=== PATIENT | male | born 1950 | race Caucasian/White ===

== ENCOUNTER 2017-04-23 11:37 | Emergency (ER) | payer BC, MEDICAID, MEDICARE ==
[2017-04-23] MEDS ORDERED: Albuterol/Ipratropium 3.0-0.5 MG/3 ML Neb Soln NEB ONE (12:14)
--- NOTE | 2017-04-23 12:15 | EDM.PDOC ---
ED HPI GENERAL MEDICAL PROBLEM - General Chief Complaint: Respiratory Problem Stated Complaint: COUGH Time Seen by Provider: 04/23/17 11:50 Source of Information: Reports: Patient, Old Records, RN History Limitations: Reports: No Limitations - History of Present Illness INITIAL COMMENTS - FREE TEXT/NARRATIVE: 66 yo male with a productive cough and SOB. No fever. Has emphysema and an albuterol MDI. Used to be on Brio but this was stopped. Is still smoking. of lung CA. Gets partial relief with his albuterol. Onset: Gradual Onset Date: 04/20/17 Duration: Day(s):, Getting Worse Location: Reports: Chest Quality: Reports: Other (no pain) Severity: Moderate Improves with: Reports: Medication Worsens with: Reports: Movement (exertion) Context: Reports: Other (chronic smoker/emphysema) Associated Symptoms: Reports: Cough, Shortness of Breath. Denies: Fever/Chills Treatments [employer]: Reports: Other (see below) (Albuterol) - Related Data Allergies Allergy/AdvReac Type Severity Reaction Status Date / Time No Known Allergies Allergy Verified 04/23/17 12:03 Home Meds: Home Meds Albuterol [Ventolin HFA] 2 puff INH Q4HR PRN 01/01/13 [History] Lisinopril [Lisinopril] 1 tab PO DAILY 01/01/13 [History] Multivitamin [Multi-Vitamin Daily] 1 each PO DAILY 01/01/13 [History] Saw [place] Fruit [Saw [place]] 450 mg PO DAILY 01/01/13 [History] Social & Family History - Tobacco Use Smoking Status *Q: Current Every Day Smoker Years of Tobacco use: 50 Packs/Tins Daily: 1 ED ROS GENERAL - Review of Systems Review Of Systems: See Below Constitutional: Reports: Malaise. Denies: Fever HEENT: Reports: Rhinitis Respiratory: Reports: Shortness of Breath, Cough, Sputum (yellow) Cardiovascular: Reports: No Symptoms GI/Abdominal: Reports: No Symptoms : Reports: No Symptoms Musculoskeletal: Reports: No Symptoms Skin: Reports: No Symptoms Neurological: Reports: No Symptoms ED EXAM, GENERAL - Physical Exam Exam: See Below Exam Limited By: No Limitations General Appearance: Alert, WD/WN, No Apparent Distress, Other (appears older than his stated age) Eye Exam: Bilateral Eye: Normal Inspection Ears: Normal External Exam, Normal Canal, Hearing Grossly Normal, Normal TMs Ear Exam: Bilateral Ear: Auricle Normal, Canal Normal, TM normal Nose: Normal Inspection, Normal Mucosa, No Blood Throat/Mouth: Normal Inspection, Normal Lips, Normal Oropharynx, Normal Voice, No Airway Compromise Head: Atraumatic, Normocephalic Neck: Normal Inspection Respiratory/Chest: No Respiratory Distress, Lungs Clear, Decreased Breath Sounds (bilaterally). No: Normal Breath Sounds, No Accessory Muscle Use, Chest Non-Tender Cardiovascular: Regular Rate, Rhythm, No Edema Extremities: Normal Inspection, Non-Tender, No Pedal Edema Neurological: Alert, Oriented, CN II-XII Intact, Normal Cognition, No Motor/ Sensory Deficits Psychiatric: Normal Affect, Normal Mood Skin Exam: Warm, Dry, Intact, Normal Color, No Rash Course - Vital Signs Text/Narrative:: Feels better after neb, breath sounds still decreased bilat. Last Recorded V/S: Last Vital Signs Temp 37.7 C 04/23/17 12:09 Pulse 89 04/23/17 12:09 Resp 18 04/23/17 12:09 BP 142/87 H 04/23/17 12:09 Pulse Ox 91 L 04/23/17 12:09 - Orders/Labs/Meds Orders: Active Orders 24 hr Category Date Time Status RT Aerosol Therapy [RC] ASDIRECTED Care 04/23/17 12:14 Active Chest 2V [CR] Stat Exams 04/23/17 12:14 Taken Meds: Medications Discontinued Medications Generic Name Dose Route Start Last Admin Trade Name Freq PRN Reason Stop Dose Admin Albuterol/Ipratropium 3 ml 04/23/17 12:14 04/23/17 12:19 Duoneb 3.0-0.5 Mg/3 Ml NEB 04/23/17 12:15 3 ml ONETIME ONE Administration - Radiology Interpretation Free Text/Narrative:: CXR-hyperinflation only Departure - Departure Time of Disposition: 13:00 Disposition: Home, Self-Care 01 Condition: Fair Clinical Impression: Bronchitis, Tobacco abuse disorder Emphysema lung Qualifiers: Emphysema type: unspecified Qualified Code(s): J43.9 - Emphysema, unspecified Clinical Impression: (Ruled Out): Emphysema with chronic bronchitis - Discharge Information Referrals: Phil Klein MD [Primary Care Provider] - Forms: ED Department Discharge - My Orders Last 24 Hours: My Active Orders 04/23/17 12:14 RT Aerosol Therapy [RC] ASDIRECTED Chest 2V [CR] Stat - Assessment/Plan Last 24 Hours: My Active Orders 04/23/17 12:14 RT Aerosol Therapy [RC] ASDIRECTED Chest 2V [CR] Stat
--- NOTE | 2017-04-24 09:47 | CR ---
Chest 2V HISTORY: Cough, shortness of breath. COMPARISON: 03/29/2007 FINDINGS: Hyperinflation. Cardiac size and pulmonary vessels normal. There are no infiltrates or effu sions. No pneumothorax. The osseous structures appear normal. IMPRESSION: No acute pulmonary disease.
== END 2017-04-23 13:57 | disposition home or self-care (01) ==
LOC: JP.ED 11:37
DX: J40 Bronchitis, not specified as acute or chronic (principal); J43.9 Emphysema, unspecified; F17.210 Nicotine dependence, cigarettes, uncomplicated; Z79.899 Other long term (current) drug therapy
CPT/HCPCS: 71046; 94640; 99284; J7620

== ENCOUNTER 2017-12-25 15:23 | Emergency (ER) | payer MEDICARE ==
[2017-12-25] MEDS ORDERED: Bacitracin Oint 1 GM U/D Packet TOP ONE (16:04)
--- NOTE | 2017-12-25 16:14 | EDM.PDOC ---
ED HPI GENERAL MEDICAL PROBLEM - General Chief Complaint: Laceration Stated Complaint: CUT THUMB Time Seen by Provider: 12/25/17 16:00 Source of Information: Reports: Patient History Limitations: Reports: No Limitations - History of Present Illness INITIAL COMMENTS - FREE TEXT/NARRATIVE: 67-year-old male accidentally caught his left thumb on a table saw blade. No other injury. Tetanus is current Onset: Sudden Duration: Hour(s): (Within the last hour) Left Hand Pain Score (Numeric/FACES): 4 - Related Data Allergies Allergy/AdvReac Type Severity Reaction Status Date / Time No Known Allergies Allergy Verified 04/23/17 12:03 Home Meds: Home Meds Albuterol [Ventolin HFA] 2 puff INH Q4HR PRN 01/01/13 [History] Lisinopril 1 tab PO DAILY 01/01/13 [History] Multivitamin [Multi-Vitamin Daily] 1 each PO DAILY 01/01/13 [History] Saw [place] Fruit [Saw [place]] 450 mg PO DAILY 01/01/13 [History] Azithromycin [IJD: Azithromycin] 250 mg PO DAILY #6 tab 04/23/17 [Rx] predniSONE [Prednisone] 10 mg PO TID #14 tablet 04/23/17 [Rx] ED ROS GENERAL - Review of Systems Review Of Systems: See Below Constitutional: Denies: Fever, Chills Respiratory: Denies: Shortness of Breath GI/Abdominal: Denies: Nausea, Vomiting Psychiatric: Reports: No Symptoms ED EXAM, SKIN/RASH Exam: See Below Exam Limited By: No Limitations General Appearance: Alert, No Apparent Distress Respiratory/Chest: No Respiratory Distress Extremities: Other (Exam is otherwise limited to the left hand. The patient has a 3 x 2 cm area of laceration and avulsion of the pulp of the thumb on the left side. There is no bone exposure or involvement of the nailbed on the opposite side of the thumb. There is however a significant amount of soft tissue missing. ) Course - Vital Signs Last Recorded V/S: Last Vital Signs Temp 98.2 F 12/25/17 16:11 Pulse 93 12/25/17 16:11 Resp 16 12/25/17 16:11 BP 131/74 12/25/17 16:11 Pulse Ox 90 L 12/25/17 16:11 - Orders/Labs/Meds Meds: Medications Discontinued Medications Generic Name Dose Route Start Last Admin Trade Name Andrzej PRN Reason Stop Dose Admin Bacitracin 1 dose 12/25/17 16:04 12/25/17 16:30 Bacitracin Oint 1 Gm TOP 12/25/17 16:05 1 dose ONETIME ONE Administration - Re-Assessments/Exams Free Text/Narrative Re-Assessment/Exam: 12/25/17 16:13 The wound was washed with saline, bacitracin applied, nonstick dressing and a tube gauze. He'll be discharged with cephalexin 500 mg 3 times a day, given 10 Vicodin for extra pain control and recheck with Dr. Cho tomorrow morning at the clinic. Departure - Departure Time of Disposition: 16:50 Disposition: Home, Self-Care 01 Condition: Good Clinical Impression: Laceration of thumb Qualifiers: Encounter type: initial encounter Damage to nail status: without damage Foreign body presence: without foreign body Laterality: left Qualified Code(s): S61.012A - Laceration without foreign body of left thumb without damage to nail , initial encounter - Discharge Information Instructions: Laceration Care, Adult Referrals: Phil Klein MD [Primary Care Provider] - Forms: ED Department Discharge Care Plan Goals: Keep wound covered, take antibiotic and pain medications as prescribed. Recheck tomorrow with Dr. Cho at the clinic after 9 AM.
== END 2017-12-25 16:45 | disposition home or self-care (01) ==
LOC: JP.ED 15:23
DX: S61.012A Laceration without foreign body of left thumb without damage to nail, initial encounter (principal); W23.1XXA Caught, crushed, jammed, or pinched between stationary objects, initial encounter; Z79.899 Other long term (current) drug therapy
CPT/HCPCS: 99283

== ENCOUNTER 2019-04-20 21:01 | Inpatient (IN) | payer MEDICARE ==
--- NOTE | 2019-04-20 22:15 | EDM.PDOC ---
ED HPI GENERAL MEDICAL PROBLEM - General Chief Complaint: General Stated Complaint: NAUSEA,FEVER/CHILLS Time Seen by Provider: 04/20/19 21:38 Source of Information: Reports: Patient, Family, RN Notes Reviewed History Limitations: Reports: No Limitations - History of Present Illness INITIAL COMMENTS - FREE TEXT/NARRATIVE: 68-year-old gentleman presents emergency department a complaint of fever, he has a known history of COPD as well as leukemia currently undergoing chemotherapy treatment. He states his fever at home was up to 102 he feels weak however by the time he arrives to the emergency department he does feel better. States he has some shortness of breath beyond baseline but no cough no chest pain no nausea or vomiting denies pain Pain Score (Numeric/FACES): 0 - Related Data Allergies Allergy/AdvReac Type Severity Reaction Status Date / Time No Known Allergies Allergy Verified 04/20/19 21:38 Home Meds: Home Meds Albuterol [Ventolin HFA] 2 puff INH Q4HR PRN 01/01/13 [History] Lisinopril 20 mg PO DAILY 01/01/13 [History] Multivitamin [Multi-Vitamin Daily] 1 each PO DAILY 01/01/13 [History] Acyclovir 200 mg PO DAILY 04/20/19 [History] Escitalopram Oxalate 5 mg PO DAILY 04/20/19 [History] Fluticasone/Vilanterol [Breo Ellipta 100-25 MCG Inhalation Kit] 1 inh INH DAILY 04/20/19 [History] Metoclopramide HCl 5 mg PO ASDIRECTED PRN 04/20/19 [History] Prochlorperazine [Compazine] 10 mg PO ASDIRECTED PRN 04/20/19 [History] Sulfamethoxazole/Trimethoprim [Sulfamethoxazole-Tmp Ss Tablet] 1 each PO ASDIRECTED 04/20/19 [History] Tamsulosin HCl 0.4 mg PO DAILY 04/20/19 [History] Venetoclax [Venclexta] 200 mg PO BID 04/20/19 [History] ondansetron HCL [Ondansetron HCl] 8 mg PO ASDIRECTED PRN 04/20/19 [History] traMADol HCl [Tramadol HCl] 50 mg PO ASDIRECTED PRN 04/20/19 [History] Past Medical History HEENT History: Reports: Impaired Vision, Other (See Below) Other HEENT History: wears glasses Cardiovascular History: Reports: Hypertension Respiratory History: Reports: Asthma, COPD Genitourinary History: Reports: BPH Musculoskeletal History: Reports: Arthritis Psychiatric History: Reports: Depression Oncologic (Cancer) History: Reports: Leukemia - Infectious Disease History Infectious Disease History: Reports: Other (See Below) Other Infectious Disease History: unknown - Past Surgical History GI Surgical History: Reports: Appendectomy Social & Family History - Tobacco Use Smoking Status *Q: Current Every Day Smoker Years of Tobacco use: 55 Packs/Tins Daily: 1 Second Hand Smoke Exposure: Yes - Caffeine Use Caffeine Use: Reports: Coffee - Recreational Drug Use Recreational Drug Use: No ED ROS GENERAL - Review of Systems Review Of Systems: See Below Constitutional: Reports: Fever, Chills, Weakness, Fatigue HEENT: Reports: No Symptoms Respiratory: Reports: Shortness of Breath. Denies: Cough, Sputum Cardiovascular: Reports: Dyspnea on Exertion GI/Abdominal: Reports: No Symptoms : Reports: No Symptoms Musculoskeletal: Reports: No Symptoms Skin: Reports: No Symptoms ED EXAM, GENERAL - Physical Exam Exam: See Below Exam Limited By: No Limitations General Appearance: Alert, WD/WN, No Apparent Distress Neck: Normal Inspection, Supple, Non-Tender, Full Range of Motion Respiratory/Chest: No Respiratory Distress, No Accessory Muscle Use, Chest Non- Tender, Decreased Breath Sounds Cardiovascular: Regular Rate, Rhythm, No Murmur GI/Abdominal: Soft, Non-Tender Extremities: Normal Inspection, Normal Range of Motion, Non-Tender Course - Vital Signs Last Recorded V/S: Last Vital Signs Temp 99.9 F 04/20/19 22:58 Pulse 104 H 04/20/19 22:58 Resp 16 04/20/19 22:58 BP 125/56 L 04/20/19 22:58 Pulse Ox 90 L 04/20/19 22:58 - Orders/Labs/Meds Orders: Active Orders 24 hr Category Date Time Status Peripheral IV Care [RC] . DIRECTED Care 04/21/19 00:18 Active CULTURE BLOOD [BC] Urgent Lab 04/21/19 00:30 Received CULTURE BLOOD [BC] Urgent Lab 04/21/19 00:35 Received Lactated Ringers [Ringers, Lactated] 1,000 ml Med 04/21/19 00:17 Active IV BOLUS Piperacillin/Tazobactam [Zosyn] 4.5 gm Med 04/21/19 00:18 Active Sodium Chloride 0.9% [Normal Saline] 100 ml IV ONETIME Sodium Chloride 0.9% [Saline Flush] Med 04/21/19 00:18 Active 10 ml FLUSH ASDIRECTED PRN Blood Culture x2 Reflex Set [OM.PC] Urgent Oth 04/21/19 00:18 Ordered Peripheral IV Insertion Adult [OM.PC] Urgent Oth 04/21/19 00:17 Ordered Medication Orders Lactated Ringer's (Ringers, Lactated) 1,000 mls @ 999 mls/hr IV BOLUS ONE Stop: 04/21/19 01:17 Piperacillin Sod/Tazobactam (Sod 4.5 gm/ Sodium Chloride) 100 mls @ 100 mls/hr IV ONETIME ONE Stop: 04/21/19 01:17 Sodium Chloride (Saline Flush) 10 ml FLUSH ASDIRECTED PRN PRN Reason: Keep Vein Open Labs: Laboratory Tests 04/20/19 04/20/19 04/20/19 Range/Units 22:24 22:24 22:24 WBC 3.8 L (4.5-11.0) K/uL RBC 3.47 L (4.30-5.90) M/uL Hgb 10.1 L (12.0-15.0) g/dL Hct 33.3 L (40.0-54.0) % MCV 96 (80-98) fL MCH 29 (27-31) pg MCHC 30 L (32-36) % Plt Count 590 H (150-400) K/uL Add Manual Diff Yes Neutrophils % (Manual) 12 L (36-66) % Lymphocytes % (Manual) 47 H (24-44) % Monocytes % (Manual) 38 H (2-6) % Blast Cells % 2 % Sodium 135 L (140-148) mmol/L Potassium 4.7 (3.6-5.2) mmol/L Chloride 100 (100-108) mmol/L Carbon Dioxide 27 (21-32) mmol/L Anion Gap 12.7 (5.0-14.0) mmol/L BUN 17 (7-18) mg/dL Creatinine 1.0 (0.8-1.3) mg/dL Est Cr Clr Drug Dosing 61.40 mL/min Estimated GFR (MDRD) > 60 (>60) Glucose 109 H (74-106) mg/dL Lactic Acid 0.8 (0.4-2.0) mmol/L Calcium 8.5 (8.5-10.1) mg/dL Total Bilirubin 0.5 (0.2-1.0) mg/dL AST 19 (15-37) U/L ALT 23 (12-78) U/L Alkaline Phosphatase 102 (46-116) U/L Troponin I < 0.017 (0.000-0.056) ng/mL Total Protein 7.1 (6.4-8.2) g/dL Albumin 3.7 (3.4-5.0) g/dL Globulin 3.4 (2.3-3.5) g/dL Albumin/Globulin Ratio 1.1 L (1.2-2.2) Urine Color (YELLOW) Urine Appearance (CLEAR) Urine pH (5.0-8.0) Ur Specific [place] (1.008-1.030) Urine Protein (NEGATIVE) mg/dL Urine Glucose (UA) (NEGATIVE) mg/dL Urine Ketones (NEGATIVE) mg/dL Urine Occult Blood (NEGATIVE) Urine Nitrite (NEGATIVE) Urine Bilirubin (NEGATIVE) Urine Urobilinogen (0.2-1.0) EU/dL Ur Leukocyte Esterase (NEGATIVE) Urine RBC (0-5) Urine WBC (0-5) Ur Epithelial Cells Amorphous Sediment Urine Bacteria Urine Mucus 04/20/19 Range/Units 22:29 WBC (4.5-11.0) K/uL RBC (4.30-5.90) M/uL Hgb (12.0-15.0) g/dL Hct (40.0-54.0) % MCV (80-98) fL MCH (27-31) pg MCHC (32-36) % Plt Count (150-400) K/uL Add Manual Diff Neutrophils % (Manual) (36-66) % Lymphocytes % (Manual) (24-44) % Monocytes % (Manual) (2-6) % Blast Cells % % Sodium (140-148) mmol/L Potassium (3.6-5.2) mmol/L Chloride (100-108) mmol/L Carbon Dioxide (21-32) mmol/L Anion Gap (5.0-14.0) mmol/L BUN (7-18) mg/dL Creatinine (0.8-1.3) mg/dL Est Cr Clr Drug Dosing mL/min Estimated GFR (MDRD) (>60) Glucose (74-106) mg/dL Lactic Acid (0.4-2.0) mmol/L Calcium (8.5-10.1) mg/dL Total Bilirubin (0.2-1.0) mg/dL AST (15-37) U/L ALT (12-78) U/L Alkaline Phosphatase (46-116) U/L Troponin I (0.000-0.056) ng/mL Total Protein (6.4-8.2) g/dL Albumin (3.4-5.0) g/dL Globulin (2.3-3.5) g/dL Albumin/Globulin Ratio (1.2-2.2) Urine Color Yellow (YELLOW) Urine Appearance Clear (CLEAR) Urine pH 6.0 (5.0-8.0) Ur Specific [place] 1.015 (1.008-1.030) Urine Protein Negative (NEGATIVE) mg/dL Urine Glucose (UA) Negative (NEGATIVE) mg/dL Urine Ketones Negative (NEGATIVE) mg/dL Urine Occult Blood Negative (NEGATIVE) Urine Nitrite Negative (NEGATIVE) Urine Bilirubin Negative (NEGATIVE) Urine Urobilinogen 0.2 (0.2-1.0) EU/dL Ur Leukocyte Esterase Negative (NEGATIVE) Urine RBC 0-5 (0-5) Urine WBC 0-5 (0-5) Ur Epithelial Cells Rare Amorphous Sediment Not seen Urine Bacteria Not seen Urine Mucus Not seen Meds: Medications Generic Name Dose Route Start Last Admin Trade Name Freq PRN Reason Stop Dose Admin Lactated Ringer's 1,000 mls @ 999 mls/hr 04/21/19 00:17 Ringers, Lactated IV 04/21/19 01:17 BOLUS ONE Piperacillin Sod/Tazobactam 100 mls @ 100 mls/hr 04/21/19 00:18 Sod 4.5 gm/ Sodium Chloride IV 04/21/19 01:17 ONETIME ONE Sodium Chloride 10 ml 04/21/19 00:18 Saline Flush FLUSH ASDIRECTED PRN Keep Vein Open Departure - Departure Time of Disposition: 00:42 Disposition: Admitted As Inpatient 66 Condition: Poor Clinical Impression: Neutropenic fever - Discharge Information Referrals: Phil Klein MD [Primary Care Provider] - Forms: ED Department Discharge Sepsis Event Note - Evaluation Sepsis Screening Result: No Definite Risk - Focused Exam Vital Signs: Vital Signs Temp Pulse Resp BP Pulse Ox 04/20/19 22:58 99.9 F 104 H 16 125/56 L 90 L 04/20/19 22:17 103 H 116/66 91 L 04/20/19 21:49 99.4 F 118 H 18 134/63 93 L 04/20/19 21:21 93 L 04/20/19 21:18 99.4 F 118 H 18 134/63 86 L Date Exam was Performed: 04/21/19 Time Exam was Performed: 00:40 - My Orders Last 24 Hours: My Active Orders 04/21/19 00:17 Lactated Ringers [Ringers, Lactated] 1,000 ml IV BOLUS Peripheral IV Insertion Adult [OM.PC] Urgent 04/21/19 00:18 Peripheral IV Care [RC] . DIRECTED Piperacillin/Tazobactam [Zosyn] 4.5 gm Sodium Chloride 0.9% [Normal Saline] 100 ml IV ONETIME Sodium Chloride 0.9% [Saline Flush] 10 ml FLUSH ASDIRECTED PRN Blood Culture x2 Reflex Set [OM.PC] Urgent 04/21/19 00:30 CULTURE BLOOD [BC] Urgent 04/21/19 00:35 CULTURE BLOOD [BC] Urgent - Assessment/Plan Last 24 Hours: My Active Orders 04/21/19 00:17 Lactated Ringers [Ringers, Lactated] 1,000 ml IV BOLUS Peripheral IV Insertion Adult [OM.PC] Urgent 04/21/19 00:18 Peripheral IV Care [RC] . 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 Zuñiga hospitalist on-call at 00 30 he can agreed to come and evaluate the patient in the hospital for admission, blood cultures have been done prior to initiation of antibiotics combination Zosyn and vancomycin This note was dictated using [employer] voice recognition software please call with any questions on syntax or grammar.
--- NOTE | 2019-04-20 23:03 | CRLCR ---
Indication: Fever Technique: Chest 2 views Comparison: 04/23/2017 Findings/Impression: Cardiovascular and mediastinum: Heart size and vasculature are normal in caliber and appearance. Mediastinum is within normal limits. Lungs and pleural spaces: Hyperinflation compatible with COPD. No consolidation. A 6 mm right upper lobe nodular opacity projecting over the posterior 5th rib, more conspicuous compared to the prior study. Recommend close follow-up and consider CT. No pleural effusions. Bones and soft tissues: No significant findings. Dictated by Contreras Valdez MD @ 04/20/2019 11:01:26 PM Dictated by: Contreras Valdez MD @ 04/20/2019 23:01:30 (Electronically Signed)
[2019-04-21] MEDS ORDERED: Lactated Ringers 1,000 ML IV ONE (00:17)
[2019-04-21] MEDS ORDERED: Piperacillin/Tazobactam 4.5 GM in Sodium Chloride 0.9% 100 ML IV ONE (00:18)
[2019-04-21] MEDS ORDERED: Sodium Chloride 0.9% 10 ML Syringe FLUSH PRN (00:18)
[2019-04-21] MEDS ORDERED: Albuterol 8 GM Inhaler INH PRN (00:50)
[2019-04-21] MEDS ORDERED: Metoclopramide 10 MG Tab PO PRN (00:50)
[2019-04-21] MEDS ORDERED: ONDANSETRON HCL 8 MG PO PRN (00:50)
[2019-04-21] MEDS ORDERED: Prochlorperazine 10 MG Tab PO PRN (00:50)
[2019-04-21] MEDS ORDERED: traMADol 50 MG Tab PO PRN (00:50)
[2019-04-21] MEDS ORDERED: Ibuprofen 600 MG Tab PO PRN (00:52)
[2019-04-21] MEDS ORDERED: fentaNYL 100 MCG/2 ML SDV IVPUSH PRN (00:52)
[2019-04-21] MEDS: Melatonin 3 MG Tab PO PRN (02:06)
[2019-04-21] MEDS: Sodium Chloride 0.9% 1,000 ML IV SCH ×3 (04:16→23:15)
[2019-04-21] MEDS: traMADol 50 MG Tab PO PRN ×4 (05:20→22:52)
[2019-04-21] MEDS ORDERED: Piperacillin/Tazobactam 3.375 GM in Sodium Chloride 0.9% 50 ML IV SCH (06:00)
--- NOTE | 2019-04-21 06:24 | PCM.HP.2 ---
H&P History of Present Illness - General Date of Service: 04/21/19 Admit Problem/Dx: Admission Diagnosis/Problem Admission Diagnosis/Problem Fever Source of Information: Patient, Provider, RN Notes Reviewed History Limitations: Reports: No Limitations - History of Present Illness Initial Comments - Free Text/Narative: Mr. Stokes is a 68-year-old gentleman who was admitted through the emergency department with weakness and nausea secondary to a neutropenic fever. He has a known history of acute myelogenous leukemia and is currently treated with chemotherapy. He has had some ongoing difficulty with nausea, but yesterday developed significant temperature elevation and presented to the emergency department for further evaluation. Evaluation in the emergency department showed no obvious source of infection, chest x-ray did show evidence of a pulmonary nodule which will need to be followed. Blood cultures were obtained and he has been started on broad-spectrum IV antibiotic therapy with Zosyn and vancomycin. IV fluids have been initiated and he is receiving medication as needed for pain and nausea. denies pain Pain Score (Numeric/FACES): 0 - Related Data Allergies/Adverse Reactions: Allergies Allergy/AdvReac Type Severity Reaction Status Date / Time No Known Allergies Allergy Verified 04/20/19 21:38 Home Medications: Home Meds Albuterol [Ventolin HFA] 2 puff INH Q4HR PRN 01/01/13 [History] Lisinopril 20 mg PO DAILY 01/01/13 [History] Multivitamin [Multi-Vitamin Daily] 1 each PO DAILY 01/01/13 [History] Acyclovir 200 mg PO DAILY 04/20/19 [History] Escitalopram Oxalate 5 mg PO DAILY 04/20/19 [History] Fluticasone/Vilanterol [Breo Ellipta 100-25 MCG Inhalation Kit] 1 inh INH DAILY 04/20/19 [History] Metoclopramide HCl 5 mg PO ASDIRECTED PRN 04/20/19 [History] Prochlorperazine [Compazine] 10 mg PO ASDIRECTED PRN 04/20/19 [History] Sulfamethoxazole/Trimethoprim [Sulfamethoxazole-Tmp Ss Tablet] 1 each PO ASDIRECTED 04/20/19 [History] Tamsulosin HCl 0.4 mg PO DAILY 04/20/19 [History] Venetoclax [Venclexta] 200 mg PO BID 01/25/20 [History] ondansetron HCL [Ondansetron HCl] 8 mg PO Q8H PRN 04/20/19 [History] traMADol HCl [Tramadol HCl] 50 mg PO ASDIRECTED PRN 04/20/19 [History] Past Medical History HEENT History: Reports: Impaired Vision, Other (See Below) Other HEENT History: wears glasses Cardiovascular History: Reports: Hypertension Respiratory History: Reports: Asthma, COPD Genitourinary History: Reports: BPH Musculoskeletal History: Reports: Arthritis Psychiatric History: Reports: Depression Oncologic (Cancer) History: Reports: Leukemia - Infectious Disease History Infectious Disease History: Reports: Other (See Below) Other Infectious Disease History: unknown - Past Surgical History GI Surgical History: Reports: Appendectomy Social & Family History - Family History Family Medical History: Noncontributory - Tobacco Use Smoking Status *Q: Current Every Day Smoker Years of Tobacco use: 55 Packs/Tins Daily: 1 Second Hand Smoke Exposure: Yes - Caffeine Use Caffeine Use: Reports: Coffee - Recreational Drug Use Recreational Drug Use: No H&P Review of Systems - Review of Systems: Review Of Systems: See Below General: Reports: Fever, Chills, Weakness HEENT: Reports: No Symptoms Pulmonary: Reports: No Symptoms Cardiovascular: Reports: No Symptoms Gastrointestinal: Reports: Decreased Appetite, Nausea. Denies: Abdominal Pain, Constipation, Diarrhea, Difficulty Swallowing, Distension, Hematemesis, Hematochezia, Melena, Vomiting Genitourinary: Reports: No Symptoms Musculoskeletal: Reports: No Symptoms Skin: Reports: No Symptoms Psychiatric: Reports: No Symptoms Neurological: Reports: No Symptoms Hematologic/Lymphatic: Reports: No Symptoms Immunologic: Reports: No Symptoms Exam - Exam Exam: See Below - Vital Signs Vital Signs: Last Vital Signs Temp 98.2 F 04/21/19 05:25 Pulse 83 04/21/19 05:25 Resp 18 04/21/19 05:25 BP 104/55 L 04/21/19 05:25 Pulse Ox 90 L 04/21/19 05:25 Weight: 128 lb 9.6 oz - Exam General: Alert, Oriented, Cooperative, Mild Distress HEENT: PERRLA, Hearing Intact, Mucosa Moist & [place], Normal Nasal Septum, Posterior Pharynx Clear, Pupils Equal Neck: Supple, Trachea Midline, +2 Carotid Pulse wo Bruit Lungs: Clear to Auscultation, Normal Respiratory Effort Cardiovascular: Regular Rate, Regular Rhythm, Normal S1, Normal S2. No: Systolic Murmur, Diastolic Murmur GI/Abdominal Exam: Soft, Non-Tender, No Organomegaly, No Distention Back Exam: Normal Inspection, Full Range of Motion Extremities: Non-Tender, No Pedal Edema Skin: Warm, Dry, Intact Neurological: Cranial Nerves Intact, Strength Equal Bilateral, Normal Speech, Normal Tone, Sensation Intact. No: Focal Deficit Neuro Extensive - Mental Status: Alert, Oriented x3, Normal Mood/Affect, Normal Cognition, Memory Intact - Patient Data Lab Results Last 24 hrs: Laboratory Results - last 24 hr 04/20/19 04/20/19 04/20/19 Range/Units 22:24 22:24 22:24 WBC 3.8 L (4.5-11.0) K/uL RBC 3.47 L (4.30-5.90) M/uL Hgb 10.1 L (12.0-15.0) g/dL Hct 33.3 L (40.0-54.0) % MCV 96 (80-98) fL MCH 29 (27-31) pg MCHC 30 L (32-36) % Plt Count 590 H (150-400) K/uL Add Manual Diff Yes Neutrophils % (Manual) 12 L (36-66) % Lymphocytes % (Manual) 47 H (24-44) % Monocytes % (Manual) 38 H (2-6) % Blast Cells % 2 % Sodium 135 L (140-148) mmol/L Potassium 4.7 (3.6-5.2) mmol/L Chloride 100 (100-108) mmol/L Carbon Dioxide 27 (21-32) mmol/L Anion Gap 12.7 (5.0-14.0) mmol/L BUN 17 (7-18) mg/dL Creatinine 1.0 (0.8-1.3) mg/dL Est Cr Clr Drug Dosing 61.40 mL/min Estimated GFR (MDRD) > 60 (>60) Glucose 109 H (74-106) mg/dL Lactic Acid 0.8 (0.4-2.0) mmol/L Calcium 8.5 (8.5-10.1) mg/dL Total Bilirubin 0.5 (0.2-1.0) mg/dL AST 19 (15-37) U/L ALT 23 (12-78) U/L Alkaline Phosphatase 102 (46-116) U/L Troponin I < 0.017 (0.000-0.056) ng/mL Total Protein 7.1 (6.4-8.2) g/dL Albumin 3.7 (3.4-5.0) g/dL Globulin 3.4 (2.3-3.5) g/dL Albumin/Globulin Ratio 1.1 L (1.2-2.2) Urine Color (YELLOW) Urine Appearance (CLEAR) Urine pH (5.0-8.0) Ur Specific [place] (1.008-1.030) Urine Protein (NEGATIVE) mg/dL Urine Glucose (UA) (NEGATIVE) mg/dL Urine Ketones (NEGATIVE) mg/dL Urine Occult Blood (NEGATIVE) Urine Nitrite (NEGATIVE) Urine Bilirubin (NEGATIVE) Urine Urobilinogen (0.2-1.0) EU/dL Ur Leukocyte Esterase (NEGATIVE) Urine RBC (0-5) Urine WBC (0-5) Ur Epithelial Cells Amorphous Sediment Urine Bacteria Urine Mucus 04/20/19 Range/Units 22:29 WBC (4.5-11.0) K/uL RBC (4.30-5.90) M/uL Hgb (12.0-15.0) g/dL Hct (40.0-54.0) % MCV (80-98) fL MCH (27-31) pg MCHC (32-36) % Plt Count (150-400) K/uL Add Manual Diff Neutrophils % (Manual) (36-66) % Lymphocytes % (Manual) (24-44) % Monocytes % (Manual) (2-6) % Blast Cells % % Sodium (140-148) mmol/L Potassium (3.6-5.2) mmol/L Chloride (100-108) mmol/L Carbon Dioxide (21-32) mmol/L Anion Gap (5.0-14.0) mmol/L BUN (7-18) mg/dL Creatinine (0.8-1.3) mg/dL Est Cr Clr Drug Dosing mL/min Estimated GFR (MDRD) (>60) Glucose (74-106) mg/dL Lactic Acid (0.4-2.0) mmol/L Calcium (8.5-10.1) mg/dL Total Bilirubin (0.2-1.0) mg/dL AST (15-37) U/L ALT (12-78) U/L Alkaline Phosphatase (46-116) U/L Troponin I (0.000-0.056) ng/mL Total Protein (6.4-8.2) g/dL Albumin (3.4-5.0) g/dL Globulin (2.3-3.5) g/dL Albumin/Globulin Ratio (1.2-2.2) Urine Color Yellow (YELLOW) Urine Appearance Clear (CLEAR) Urine pH 6.0 (5.0-8.0) Ur Specific [place] 1.015 (1.008-1.030) Urine Protein Negative (NEGATIVE) mg/dL Urine Glucose (UA) Negative (NEGATIVE) mg/dL Urine Ketones Negative (NEGATIVE) mg/dL Urine Occult Blood Negative (NEGATIVE) Urine Nitrite Negative (NEGATIVE) Urine Bilirubin Negative (NEGATIVE) Urine Urobilinogen 0.2 (0.2-1.0) EU/dL Ur Leukocyte Esterase Negative (NEGATIVE) Urine RBC 0-5 (0-5) Urine WBC 0-5 (0-5) Ur Epithelial Cells Rare Amorphous Sediment Not seen Urine Bacteria Not seen Urine Mucus Not seen Result Diagrams: 04/20/19 22:24 04/20/19 22:24 Yannick Results Last 24 hrs: Microbiology 04/20/19 23:06 Influenza Type A Antigen Screen - Final Nasal Aspirate, Unspecified NEGATIVE INFLUENZA A VIRUS AG REFERENCE RANGE: NEGATIVE Influenza Type B Antigen Screen - Final NEGATIVE INFLUENZA B VIRUS AG REFERENCE RANGE: NEGATIVE Sepsis Event Note - Evaluation Sepsis Screening Result: Sepsis Risk - Focused Exam Vital Signs: Vital Signs Temp Temp Pulse Resp BP Pulse Ox Pulse Ox 04/21/19 05:25 98.2 F 83 18 104/55 L 90 L 04/21/19 02:49 98.2 F 04/21/19 02:00 88 L 88 L 04/21/19 01:50 101.4 F H 113 H 16 124/57 L 85 L 04/21/19 01:49 101.4 F H 04/21/19 01:03 100.0 F 104 H 15 119/59 L 87 L 04/20/19 22:58 99.9 F 104 H 16 125/56 L 90 L 04/20/19 22:17 103 H 116/66 91 L 04/20/19 21:49 99.4 F 118 H 18 134/63 93 L 04/20/19 21:21 93 L 04/20/19 21:18 99.4 F 118 H 18 134/63 86 L Date Exam was Performed: 04/21/19 Time Exam was Performed: 08:10 *Q Meaningful Use (ADM) - VTE Risk Assess *Q Each Risk Factor Represents 1 Point: None Total Score 1 Point Risk Factors: 0 Each Risk Factor Represents 2 Points: Age 60 - 74 Years, Malignancy (present or previous) Total Score 2 Point Risk Factors: 4 Each Risk Factor Represents 3 Points: None Total Score 3 Point Risk Factors: 0 Each Risk Factor Represents 5 Points: None Total Score 5 Point Risk Factors: 0 Venous Thromboembolism Risk Factor Score *Q: 4 Problem List Initiated/Reviewed/Updated: Yes Orders Last 24hrs: Active Orders 24 hr Category Date Time Status Patient Status [ADT] Routine ADT 04/21/19 00:47 Active Ambulate [RC] QID Care 04/21/19 00:47 Active Height and Weight [RC] DAILY Care 04/21/19 00:47 Active Intake and Output [RC] QSHIFT Care 04/21/19 00:48 Active Oxygen Therapy [RC] PRN Care 04/21/19 00:47 Active Peripheral IV Care [RC] . DIRECTED Care 04/21/19 00:18 Active VTE/DVT Education [RC] Per Unit Routine Care 04/21/19 00:47 Active Vital Signs [RC] Q4H Care 04/21/19 00:47 Active Regular Diet [DIET] Diet 04/21/19 Breakfast Active CULTURE BLOOD [BC] Urgent Lab 04/21/19 00:30 Received CULTURE BLOOD [BC] Urgent Lab 04/21/19 00:35 Received Acyclovir [Zovirax] Med 04/21/19 09:00 Active 200 mg PO DAILY Albuterol [Ventolin HFA] Med 04/21/19 00:50 Active 0 gm INH Q4H PRN Escitalopram [Lexapro] Med 04/21/19 09:00 Active 5 mg PO DAILY Fluticasone/Salmeterol [Fluticasone-Salmeterol 113-14 Med 04/21/19 07:00 Active MCG Powder Inh] 1 puff INH BIDRT Ibuprofen [Motrin] Med 04/21/19 00:52 Active 600 mg PO Q6H PRN Melatonin Med 04/21/19 01:51 Active 9 mg PO BEDTIME PRN Metoclopramide [Reglan] Med 04/21/19 00:50 Active 5 - 10 mg PO Q6H PRN Multivitamins w-Iron/Ca/FA/Min [Thera M Plus] Med 04/21/19 09:00 Active 1 tab PO DAILY Piperacillin/Tazobactam [Zosyn] 3.375 gm Med 04/21/19 06:00 Active Sodium Chloride 0.9% [Normal Saline] 50 ml IV Q6H Prochlorperazine [Compazine] Med 04/21/19 00:50 Active 10 mg PO Q6H PRN Sodium Chloride 0.9% [Normal Saline] 1,000 ml Med 04/21/19 01:00 Active IV ASDIRECTED Sodium Chloride 0.9% [Saline Flush] Med 04/21/19 00:18 Active 10 ml FLUSH ASDIRECTED PRN Tamsulosin [Flomax] Med 04/21/19 09:00 Active 0.4 mg PO DAILY Vancomycin 1 gm Med 04/21/19 01:00 Active Sodium Chloride 0.9% [Normal Saline] 250 ml IV Q24H Venetoclax [Venclexta] Med 04/21/19 09:00 Pending 200 mg PO BID fentaNYL [Sublimaze] Med 04/21/19 00:52 Active 50 mcg IVPUSH Q6H PRN lisinopriL [Prinivil] Med 04/21/19 09:00 Active 20 mg PO DAILY ondansetron HCL [Ondansetron HCl] Med 04/21/19 00:50 Pending 8 mg PO ASDIRECTED PRN traMADol [Ultram] Med 04/21/19 04:57 Active 50 mg PO Q6H PRN Blood Culture x2 Reflex Set [OM.PC] Urgent Oth 04/21/19 00:18 Ordered Peripheral IV Insertion Adult [OM.PC] Urgent Oth 04/21/19 00:17 Ordered Sequential Compression Device [OM.PC] Per Unit Routine Oth 04/21/19 00:49 Ordered Resuscitation Status Routine Resus Stat 04/21/19 00:47 Ordered Medication Orders Acyclovir (Zovirax) 200 mg PO DAILY [facility] Albuterol (Ventolin Hfa) 0 gm INH Q4H PRN PRN Reason: Wheezing Escitalopram Oxalate (Lexapro) 5 mg PO DAILY [facility] Fentanyl (Sublimaze) 50 mcg IVPUSH Q6H PRN PRN Reason: Pain (severe 7-10) Piperacillin Sod/Tazobactam (Sod 3.375 gm/ Sodium Chloride) 50 mls @ 100 mls/ hr IV Q6H [facility] Last Admin: 04/21/19 05:21 Dose: 100 mls/hr Sodium Chloride (Normal Saline) 1,000 mls @ 125 mls/hr IV ASDIRECTED [facility] Last Admin: 04/21/19 04:16 Dose: 125 mls/hr Vancomycin HCl 1 gm/ Sodium (Chloride) 250 mls @ 150 mls/hr IV Q24H [facility] Last Admin: 04/21/19 02:06 Dose: 150 mls/hr Ibuprofen (Motrin) 600 mg PO Q6H PRN PRN Reason: Pain Last Admin: 04/21/19 01:49 Dose: 600 mg Lisinopril (Prinivil) 20 mg PO DAILY [facility] Melatonin (Melatonin) 9 mg PO BEDTIME PRN PRN Reason: Insomnia Last Admin: 04/21/19 02:06 Dose: 3 mg Metoclopramide HCl (Reglan) 5 - 10 mg PO Q6H PRN PRN Reason: Nausea Multivitamins/Minerals (Thera M Plus) 1 tab PO DAILY [facility] Non-Formulary Medication (Ondansetron Hcl [Ondansetron Hcl]) 8 mg PO ASDIRECTED PRN PRN Reason: Nausea Non-Formulary Medication (Venetoclax [Venclexta]) 200 mg PO BID [facility] Prochlorperazine Maleate (Compazine) 10 mg PO Q6H PRN PRN Reason: Nausea Fluticasone/Salmeterol (Fluticasone-Salmeterol 113-14 Mcg Powder Inh) 1 puff INH BIDRT [facility] Sodium Chloride (Saline Flush) 10 ml FLUSH ASDIRECTED PRN PRN Reason: Keep Vein Open Tamsulosin HCl (Flomax) 0.4 mg PO DAILY [facility] Tramadol HCl (Ultram) 50 mg PO Q6H PRN PRN Reason: Pain Last Admin: 04/21/19 05:20 Dose: 50 mg Assessment/Plan Comment:: ASSESSMENT AND PLAN NEUTROPENIC FEVER-receiving chemotherapy for AML. Yesterday developed abrupt temperature elevation, on evaluation in the emergency department no obvious source of infection identified. Laboratory studies show absolute neutropenia. -IV fluids for hydration -Blood cultures pending -IV vancomycin and Zosyn, pending culture results AML -Hold chemotherapy MAINTENANCE ISSUES -DVT prophylaxis; enoxaparin 40 mg subcu daily -GI prophylaxis; not indicated -Sepulveda catheter; not indicated -Nutrition; regular diet -Nicotine dependence; not required CODE STATUS-FULL CODE ADMISSION STATUS-patient will be admitted to inpatient status, expect at least a 2 night hospital stay for evaluation and management of problems as outlined above. At the time of this admission I do not reasonably expected evaluation and management of this problem will require more than a 96 hour hospital stay. DISPOSITION-anticipate discharge to home after the hospital stay. PRIMARY CARE PROVIDER-Dr. Klein - Mortality Measure Prognosis:: Good
[2019-04-21] MEDS ORDERED: Fluticasone-Salmeterol 113-14 MCG Powder Inhalant INH SCH (07:00)
[2019-04-21] MEDS ORDERED: FLUTICASONE INH SCH (09:00)
[2019-04-21] MEDS ORDERED: VILANTEROL INH SCH (09:00)
[2019-04-21] MEDS: Tamsulosin 0.4 MG Cap.ER PO SCH (10:00)
[2019-04-21] MEDS: Lisinopril 20 MG Tab PO SCH (10:01)
[2019-04-21] MEDS: Escitalopram 10 MG Tab PO SCH (10:01)
[2019-04-21] MEDS: Enoxaparin 40 MG/0.4 ML Syringe SUBCUT SCH (10:01)
[2019-04-21] MEDS: Multivitamins with Iron/Calcium/Folic Acid/Minerals Tab PO SCH (10:02)
[2019-04-21] MEDS: Acyclovir 200 MG Cap PO SCH (10:02)
[2019-04-21] MEDS: Fluticasone-Salmeterol 113-14 MCG Powder Inhalant INH SCH ×2 (10:48→21:15)
[2019-04-21] MEDS: Piperacillin/Tazobactam/Dext 3.375 GM in Premix Bag 1 BAG IV SCH ×3 (12:33→23:16)
[2019-04-21] MEDS: Ondansetron 4 MG Tab.DIS PO PRN ×2 (12:47→21:27)
[2019-04-22] MEDS: Melatonin 3 MG Tab PO PRN (01:37)
[2019-04-22] MEDS: Piperacillin/Tazobactam/Dext 3.375 GM in Premix Bag 1 BAG IV SCH ×3 (05:26→17:18)
[2019-04-22] MEDS: traMADol 50 MG Tab PO PRN ×4 (05:26→23:26)
[2019-04-22] MEDS ORDERED: Potassium Chloride 20 MEQ Tab.ER PO ONE (09:00)
[2019-04-22] MEDS: Fluticasone-Salmeterol 113-14 MCG Powder Inhalant INH SCH ×2 (09:24→21:53)
[2019-04-22] MEDS: Multivitamins with Iron/Calcium/Folic Acid/Minerals Tab PO SCH (09:25)
[2019-04-22] MEDS: Escitalopram 10 MG Tab PO SCH (09:25)
[2019-04-22] MEDS: Tamsulosin 0.4 MG Cap.ER PO SCH (09:25)
[2019-04-22] MEDS: Enoxaparin 40 MG/0.4 ML Syringe SUBCUT SCH (09:25)
[2019-04-22] MEDS: Acyclovir 200 MG Cap PO SCH (09:25)
[2019-04-22] MEDS: Sodium Chloride 0.9% 1,000 ML IV SCH (09:50)
[2019-04-22] MEDS: Lisinopril 20 MG Tab PO SCH (10:31)
--- NOTE | 2019-04-22 11:49 | PCM.PN ---
- General Info Date of Service: 04/22/19 Subjective Update: No acute events overnight. No fevers overnight. Strength and appetite are little better today. White blood cell count is better today but neutrophils are still less than 500. Cultures have been negative so far. No significant cough. In general he is feeling better. He did have an episode of diarrhea this morning. Functional Status: Reports: Pain Controlled, Tolerating Diet - Review of Systems General: Denies: Fever Gastrointestinal: Reports: Abdominal Pain, Diarrhea - Patient Data Vitals - Most Recent: Last Vital Signs Temp 36.9 C 04/22/19 11:26 Pulse 84 04/22/19 11:26 Resp 14 04/22/19 11:26 BP 119/69 04/22/19 11:26 Pulse Ox 93 L 04/22/19 11:26 Weight - Most Recent: 60.963 kg I&O - Last 24 Hours: Intake & Output 04/21/19 04/22/19 04/22/19 22:59 06:59 14:59 Intake Total 1483 1365 120 Output Total 100 Balance 1383 1365 120 Lab Results Last 24 Hours: Laboratory Results - last 24 hr 04/22/19 04/22/19 Range/Units 04:10 04:10 WBC 7.4 (4.5-11.0) K/uL RBC 3.00 L (4.30-5.90) M/uL Hgb 8.7 L (12.0-15.0) g/dL Hct 29.3 L (40.0-54.0) % MCV 98 (80-98) fL MCH 29 (27-31) pg MCHC 30 L (32-36) % Plt Count 493 H (150-400) K/uL Add Manual Diff Yes Neutrophils % (Manual) 8 L (36-66) % Lymphocytes % (Manual) 65 H (24-44) % Monocytes % (Manual) 27 H (2-6) % Anisocytosis Marked H Target Cells Few Sodium 141 (140-148) mmol/L Potassium 3.4 L (3.6-5.2) mmol/L Chloride 106 (100-108) mmol/L Carbon Dioxide 27 (21-32) mmol/L Anion Gap 11.4 (5.0-14.0) mmol/L BUN 7 D (7-18) mg/dL Creatinine 0.8 (0.8-1.3) mg/dL Est Cr Clr Drug Dosing 74.16 mL/min Estimated GFR (MDRD) > 60 (>60) Glucose 102 (74-106) mg/dL Calcium 8.1 L (8.5-10.1) mg/dL Yannick Results Last 24 Hours: Microbiology 04/21/19 00:30 Aerobic Blood Culture - Preliminary Blood - Arm, Right NO GROWTH AFTER 1 DAY Anaerobic Blood Culture - Preliminary NO GROWTH AFTER 1 DAY 04/21/19 00:35 Aerobic Blood Culture - Preliminary Blood - Venous - Iv Start NO GROWTH AFTER 1 DAY Anaerobic Blood Culture - Preliminary NO GROWTH AFTER 1 DAY Med Orders - Current: Current Medications Acyclovir (Zovirax) 200 mg PO DAILY [facility] Last Admin: 04/22/19 09:25 Dose: 200 mg Albuterol (Ventolin Hfa) 0 gm INH Q4H PRN PRN Reason: Wheezing Enoxaparin Sodium (Lovenox) 40 mg SUBCUT DAILY [facility] Last Admin: 04/22/19 09:25 Dose: 40 mg Escitalopram Oxalate (Lexapro) 5 mg PO DAILY [facility] Last Admin: 04/22/19 09:25 Dose: 5 mg Fentanyl (Sublimaze) 50 mcg IVPUSH Q6H PRN PRN Reason: Pain (severe 7-10) Sodium Chloride (Normal Saline) 1,000 mls @ 25 mls/hr IV ASDIRECTED [facility] Last Admin: 04/22/19 09:50 Dose: 125 mls/hr Piperacillin/Tazobactam/ (Dextrose 3.375 gm/ Premix) 50 mls @ 100 mls/hr IV Q6H [facility] Last Admin: 04/22/19 05:26 Dose: 100 mls/hr Vancomycin HCl 1 gm/ Sodium (Chloride) 250 mls @ 167 mls/hr IV Q12H [facility] Last Admin: 04/22/19 01:27 Dose: 167 mls/hr Ibuprofen (Motrin) 600 mg PO Q6H PRN PRN Reason: Pain Last Admin: 04/21/19 01:49 Dose: 600 mg Lisinopril (Prinivil) 20 mg PO DAILY [facility] Last Admin: 04/22/19 10:31 Dose: Not Given Melatonin (Melatonin) 9 mg PO BEDTIME PRN PRN Reason: Insomnia Last Admin: 04/22/19 01:37 Dose: 6 mg Metoclopramide HCl (Reglan) 5 - 10 mg PO Q6H PRN PRN Reason: Nausea Multivitamins/Minerals (Thera M Plus) 1 tab PO DAILY [facility] Last Admin: 04/22/19 09:25 Dose: 1 tab Non-Formulary Medication (Venetoclax [Venclexta]) 200 mg PO BID [facility] Ondansetron HCl (Zofran Odt) 8 mg PO Q8H PRN PRN Reason: NAUSEA Last Admin: 04/21/19 21:27 Dose: 8 mg Prochlorperazine Maleate (Compazine) 10 mg PO Q6H PRN PRN Reason: Nausea Last Admin: 04/21/19 18:20 Dose: 10 mg Fluticasone/Salmeterol (Fluticasone-Salmeterol 113-14 Mcg Powder Inh) 1 puff INH BIDRT [facility] Last Admin: 04/22/19 09:24 Dose: 1 puff Sodium Chloride (Saline Flush) 10 ml FLUSH ASDIRECTED PRN PRN Reason: Keep Vein Open Tamsulosin HCl (Flomax) 0.4 mg PO DAILY [facility] Last Admin: 04/22/19 09:25 Dose: 0.4 mg Tramadol HCl (Ultram) 50 mg PO Q6H PRN PRN Reason: Pain Last Admin: 04/22/19 11:22 Dose: 50 mg Discontinued Medications Lactated Ringer's (Ringers, Lactated) 1,000 mls @ 999 mls/hr IV BOLUS ONE Stop: 04/21/19 01:17 Last Admin: 04/21/19 00:51 Dose: 999 mls/hr Piperacillin Sod/Tazobactam (Sod 4.5 gm/ Sodium Chloride) 100 mls @ 100 mls/hr IV ONETIME ONE Stop: 04/21/19 01:17 Last Admin: 04/21/19 00:52 Dose: 100 mls/hr Piperacillin Sod/Tazobactam (Sod 3.375 gm/ Sodium Chloride) 50 mls @ 100 mls/ hr IV Q6H [facility] Last Admin: 04/21/19 05:21 Dose: 100 mls/hr Vancomycin HCl 1 gm/ Sodium (Chloride) 250 mls @ 150 mls/hr IV Q24H [facility] Last Admin: 04/21/19 02:06 Dose: 150 mls/hr Potassium Chloride (Klor-Con M20) 40 meq PO ONETIME ONE Stop: 04/22/19 09:01 Last Admin: 04/22/19 09:28 Dose: 40 meq Tramadol HCl (Ultram) 50 mg PO ASDIRECTED PRN PRN Reason: Pain - Exam Quality Assessment: No: Supplemental Oxygen General: Alert, Oriented, Cooperative, No Acute Distress Lungs: Normal Respiratory Effort, Wheezing (rare end exp wheezing ) Cardiovascular: Regular Rate, Regular Rhythm GI/Abdominal Exam: Soft, Non-Tender, No Distention Extremities: No Pedal Edema. No: Increased Warmth Skin: Warm, Dry Psy/Mental Status: Alert, Normal Affect Sepsis Event Note - Evaluation Sepsis Screening Result: No Definite Risk - Focused Exam Vital Signs: Vital Signs Temp Pulse Resp BP BP Pulse Ox 04/22/19 11:26 36.9 C 84 14 119/69 93 L 04/22/19 07:44 36.9 C 80 16 109/48 L 91 L 04/22/19 03:00 37.3 C 78 16 107/56 L 93 L Date Exam was Performed: 04/22/19 Time Exam was Performed: 13:45 - Problem List Review Problem List Initiated/Reviewed/Updated: Yes - My Orders Last 24 Hours: My Active Orders 04/22/19 11:48 Dietary Supplements [RC] BIDMEALS 04/23/19 05:00 BASIC METABOLIC PANEL,BMP [CHEM] Timed CBC WITH AUTO DIFF [HEME] Timed - Plan Plan:: ASSESSMENT AND PLAN NEUTROPENIC FEVER-receiving chemotherapy for AML. White blood cell count a little better but neutrophil count still less than 500. Feeling better today. Cultures negative so far. -Saline lock IV -Follow-up cultures -Continue vancomycin and Zosyn, reassess tomorrow AML-receiving active treatment with oral chemotherapy agent. This will be on hold until his infection has resolved. -Hold chemotherapy Right lung pulmonary nodule-noted on chest x-ray, seems to be slightly larger than before. Outpatient follow-up with CT scan down the road recommended. MAINTENANCE ISSUES -DVT prophylaxis; enoxaparin 40 mg subcu daily -GI prophylaxis; not indicated -Sepulveda catheter; not indicated -Nutrition; regular diet DISPOSITION-anticipate discharge to home after the hospital stay. Wiley Naranjo MD
[2019-04-22] MEDS: Ondansetron 4 MG Tab.DIS PO PRN (12:26)
[2019-04-22] MEDS: VENETOCLAX 200 MG PO SCH (12:53)
[2019-04-22] MEDS ORDERED: Nicotine 21 MG/24 Hr Patch TRDERM SCH (22:30)
[2019-04-23] MEDS: Piperacillin/Tazobactam/Dext 3.375 GM in Premix Bag 1 BAG IV SCH ×3 (00:06→12:34)
[2019-04-23] MEDS: Melatonin 3 MG Tab PO PRN ×2 (00:08→21:20)
[2019-04-23] MEDS: traMADol 50 MG Tab PO PRN ×3 (06:12→18:28)
[2019-04-23] MEDS: Fluticasone-Salmeterol 113-14 MCG Powder Inhalant INH SCH ×2 (07:32→21:16)
[2019-04-23] MEDS: Ondansetron 4 MG Tab.DIS PO PRN (07:59)
[2019-04-23] MEDS ORDERED: Potassium Chloride 20 MEQ Tab.ER PO ONE (09:00)
[2019-04-23] MEDS: Tamsulosin 0.4 MG Cap.ER PO SCH (10:50)
[2019-04-23] MEDS: Lisinopril 20 MG Tab PO SCH (10:50)
[2019-04-23] MEDS: Multivitamins with Iron/Calcium/Folic Acid/Minerals Tab PO SCH (10:50)
[2019-04-23] MEDS: Enoxaparin 40 MG/0.4 ML Syringe SUBCUT SCH (10:51)
[2019-04-23] MEDS: Escitalopram 10 MG Tab PO SCH (10:51)
[2019-04-23] MEDS: Acyclovir 200 MG Cap PO SCH (10:52)
[2019-04-23] MEDS ORDERED: Levofloxacin/Dextrose 5%-Water 500 MG in Premix Bag 1 BAG IV ONE (13:00)
--- NOTE | 2019-04-23 16:19 | PCM.PN ---
- General Info Date of Service: 04/23/19 Subjective Update: There were no acute events overnight. Patient did have a low-grade fever. Clinically he is feeling better. Energy and appetite are both a little better today. Mild indigestion but no impressive diarrhea. Shortness of breath is at baseline. Strength is a little better today. White blood cell count has improved but neutrophils remain quite low. Functional Status: Reports: Pain Controlled, Tolerating Diet - Review of Systems General: Reports: Fever - Patient Data Vitals - Most Recent: Last Vital Signs Temp 37.3 C 04/23/19 15:00 Pulse 88 04/23/19 15:00 Resp 20 04/23/19 15:00 BP 100/47 L 04/23/19 15:00 Pulse Ox 91 L 04/23/19 15:00 Weight - Most Recent: 60.963 kg I&O - Last 24 Hours: Intake & Output 04/23/19 04/23/19 04/23/19 06:59 14:59 22:59 Intake Total 550 2325 Balance 550 2325 Lab Results Last 24 Hours: Laboratory Results - last 24 hr 04/23/19 04/23/19 Range/Units 05:30 05:30 WBC 13.9 H (4.5-11.0) K/uL RBC 2.94 L (4.30-5.90) M/uL Hgb 8.5 L (12.0-15.0) g/dL Hct 28.7 L (40.0-54.0) % MCV 98 (80-98) fL MCH 29 (27-31) pg MCHC 30 L (32-36) % Plt Count 520 H (150-400) K/uL Add Manual Diff Yes Neutrophils % (Manual) 2 L (36-66) % Lymphocytes % (Manual) 89 H (24-44) % Monocytes % (Manual) 9 H (2-6) % Polychromasia Few Poikilocytosis Moderate H Anisocytosis Moderate H Target Cells Few Drake Cells Few Schistocytes Few Sodium 141 (140-148) mmol/L Potassium 3.4 L (3.6-5.2) mmol/L Chloride 108 (100-108) mmol/L Carbon Dioxide 25 (21-32) mmol/L Anion Gap 11.4 (5.0-14.0) mmol/L BUN 6 L (7-18) mg/dL Creatinine 0.8 (0.8-1.3) mg/dL Est Cr Clr Drug Dosing 76.20 mL/min Estimated GFR (MDRD) > 60 (>60) Glucose 95 (74-106) mg/dL Calcium 8.0 L (8.5-10.1) mg/dL Yannick Results Last 24 Hours: Microbiology 04/21/19 00:35 Aerobic Blood Culture - Preliminary Blood - Venous - Iv Start NO GROWTH AFTER 2 DAYS Anaerobic Blood Culture - Preliminary NO GROWTH AFTER 2 DAYS 04/21/19 00:30 Aerobic Blood Culture - Preliminary Blood - Arm, Right NO GROWTH AFTER 2 DAYS Anaerobic Blood Culture - Preliminary NO GROWTH AFTER 2 DAYS Med Orders - Current: Current Medications Acyclovir (Zovirax) 200 mg PO DAILY [facility] Last Admin: 04/23/19 10:52 Dose: 200 mg Albuterol (Ventolin Hfa) 0 gm INH Q4H PRN PRN Reason: Wheezing Enoxaparin Sodium (Lovenox) 40 mg SUBCUT DAILY [facility] Last Admin: 04/23/19 10:51 Dose: 40 mg Escitalopram Oxalate (Lexapro) 5 mg PO DAILY [facility] Last Admin: 04/23/19 10:51 Dose: 5 mg Fentanyl (Sublimaze) 50 mcg IVPUSH Q6H PRN PRN Reason: Pain (severe 7-10) Ibuprofen (Motrin) 600 mg PO Q6H PRN PRN Reason: Pain Last Admin: 04/21/19 01:49 Dose: 600 mg Lisinopril (Prinivil) 20 mg PO DAILY [facility] Last Admin: 04/23/19 10:50 Dose: 20 mg Melatonin (Melatonin) 9 mg PO BEDTIME PRN PRN Reason: Insomnia Last Admin: 04/23/19 00:08 Dose: 9 mg Metoclopramide HCl (Reglan) 5 - 10 mg PO Q6H PRN PRN Reason: Nausea Last Admin: 04/22/19 19:54 Dose: 10 mg Multivitamins/Minerals (Thera M Plus) 1 tab PO DAILY [facility] Last Admin: 04/23/19 10:50 Dose: 1 tab Nicotine (Habitrol) 21 mg TRDERM BEDTIME [facility] Ondansetron HCl (Zofran Odt) 8 mg PO Q8H PRN PRN Reason: NAUSEA Last Admin: 04/23/19 07:59 Dose: 8 mg Prochlorperazine Maleate (Compazine) 10 mg PO Q6H PRN PRN Reason: Nausea Last Admin: 04/21/19 18:20 Dose: 10 mg Fluticasone/Salmeterol (Fluticasone-Salmeterol 113-14 Mcg Powder Inh) 1 puff INH BIDRT [facility] Last Admin: 04/23/19 07:32 Dose: 1 puff Sodium Chloride (Saline Flush) 10 ml FLUSH ASDIRECTED PRN PRN Reason: Keep Vein Open Tamsulosin HCl (Flomax) 0.4 mg PO DAILY [facility] Last Admin: 04/23/19 10:50 Dose: 0.4 mg Tramadol HCl (Ultram) 50 mg PO Q6H PRN PRN Reason: Pain Last Admin: 04/23/19 12:37 Dose: 50 mg Discontinued Medications Lactated Ringer's (Ringers, Lactated) 1,000 mls @ 999 mls/hr IV BOLUS ONE Stop: 04/21/19 01:17 Last Admin: 04/21/19 00:51 Dose: 999 mls/hr Piperacillin Sod/Tazobactam (Sod 4.5 gm/ Sodium Chloride) 100 mls @ 100 mls/hr IV ONETIME ONE Stop: 04/21/19 01:17 Last Admin: 04/21/19 00:52 Dose: 100 mls/hr Piperacillin Sod/Tazobactam (Sod 3.375 gm/ Sodium Chloride) 50 mls @ 100 mls/ hr IV Q6H [facility] Last Admin: 04/21/19 05:21 Dose: 100 mls/hr Sodium Chloride (Normal Saline) 1,000 mls @ 25 mls/hr IV ASDIRECTED [facility] Last Admin: 04/22/19 09:50 Dose: 125 mls/hr Vancomycin HCl 1 gm/ Sodium (Chloride) 250 mls @ 150 mls/hr IV Q24H [facility] Last Admin: 04/21/19 02:06 Dose: 150 mls/hr Piperacillin/Tazobactam/ (Dextrose 3.375 gm/ Premix) 50 mls @ 100 mls/hr IV Q6H [facility] Last Admin: 04/23/19 12:34 Dose: Not Given Vancomycin HCl 1 gm/ Sodium (Chloride) 250 mls @ 167 mls/hr IV Q12H [facility] Last Admin: 04/23/19 01:34 Dose: 167 mls/hr Levofloxacin/Dextrose 500 mg/ (Premix) 100 mls @ 100 mls/hr IV ONETIME ONE Stop: 04/23/19 13:59 Last Admin: 04/23/19 13:27 Dose: 100 mls/hr Nicotine (Habitrol) 21 mg TRDERM DAILY [facility] Last Admin: 04/22/19 22:55 Dose: 21 mg Non-Formulary Medication (Venetoclax [Venclexta]) 200 mg PO BID [facility] Last Admin: 04/22/19 12:53 Dose: Not Given Potassium Chloride (Klor-Con M20) 40 meq PO ONETIME ONE Stop: 04/22/19 09:01 Last Admin: 04/22/19 09:28 Dose: 40 meq Potassium Chloride (Klor-Con M20) 40 meq PO ONETIME ONE Stop: 04/23/19 09:01 Last Admin: 04/23/19 10:51 Dose: 40 meq Tramadol HCl (Ultram) 50 mg PO ASDIRECTED PRN PRN Reason: Pain - Exam Quality Assessment: No: Supplemental Oxygen General: Alert, Oriented, Cooperative, No Acute Distress Lungs: Normal Respiratory Effort Cardiovascular: Regular Rate, Regular Rhythm GI/Abdominal Exam: Soft, No Distention Extremities: No Pedal Edema Psy/Mental Status: Alert, Normal Affect Sepsis Event Note - Evaluation Sepsis Screening Result: No Definite Risk - Focused Exam Vital Signs: Vital Signs Temp Pulse Resp BP BP Pulse Ox 04/23/19 15:00 37.3 C 88 20 100/47 L 91 L 04/23/19 12:32 37.1 C 76 20 109/63 94 L 04/23/19 10:50 118/64 04/23/19 07:49 37.2 C 75 20 118/63 92 L Date Exam was Performed: 04/23/19 Time Exam was Performed: 16:17 - Problem List Review Problem List Initiated/Reviewed/Updated: Yes - My Orders Last 24 Hours: My Active Orders 04/23/19 12:07 Convert IV to Saline Lock [OM.PC] Routine 04/23/19 21:00 Nicotine [Habitrol] 21 mg TRDERM BEDTIME 04/24/19 05:00 BASIC METABOLIC PANEL,BMP [CHEM] Timed CBC WITH AUTO DIFF [HEME] Timed - Plan Plan:: ASSESSMENT AND PLAN NEUTROPENIC FEVER-receiving chemotherapy for AML. White blood cell count a little better but neutrophil count still less than 500. Feeling better again today but he did have a low-grade fever overnight. Cultures have been negative. -Saline lock IV -Follow-up cultures -Change antibiotics to levofloxacin AML-had been receiving active treatment with oral chemotherapy agent. This will be on hold until his infection has resolved. the infusion center was updated about his admission status. -Hold chemotherapy Right lung pulmonary nodule-noted on chest x-ray, seems to be slightly larger than before. Outpatient follow-up with CT scan down the road recommended. MAINTENANCE ISSUES -DVT prophylaxis; enoxaparin 40 mg subcu daily -GI prophylaxis; not indicated -Sepulveda catheter; not indicated -Nutrition; regular diet with supplements DISPOSITION-anticipate discharge to home after the hospital stay. Wiley Naranjo MD
[2019-04-23] MEDS ORDERED: Nicotine 21 MG/24 Hr Patch TRDERM SCH (21:00)
[2019-04-24] MEDS: traMADol 50 MG Tab PO PRN ×2 (01:47→08:02)
[2019-04-24] MEDS: Ondansetron 4 MG Tab.DIS PO PRN (04:37)
[2019-04-24] MEDS: Fluticasone-Salmeterol 113-14 MCG Powder Inhalant INH SCH (07:21)
[2019-04-24] MEDS: Tamsulosin 0.4 MG Cap.ER PO SCH (08:07)
[2019-04-24] MEDS: Enoxaparin 40 MG/0.4 ML Syringe SUBCUT SCH (08:08)
[2019-04-24] MEDS: Escitalopram 10 MG Tab PO SCH (08:08)
[2019-04-24] MEDS: Multivitamins with Iron/Calcium/Folic Acid/Minerals Tab PO SCH (08:09)
[2019-04-24] MEDS: Lisinopril 20 MG Tab PO SCH (08:09)
[2019-04-24] MEDS: Acyclovir 200 MG Cap PO SCH (08:10)
--- NOTE | 2019-04-24 10:59 | PCM.DCSUM1 ---
Discharge Summary - Hospital Course Brief History: 68-year-old male with a history of acute myelogenous leukemia, tobacco dependence and emphysema who presented with fever and weakness. He was admitted for management of neutropenic fever with no obvious source for infection. Diagnosis: Stroke: No - Discharge Data Discharge Date: 04/24/19 Discharge Disposition: Home, Self-Care 01 Condition: Fair - Referral to Home Health Primary Care Physician: Phil Klein MD - Discharge Diagnosis/Problem(s) (1) Neutropenic fever SNOMED Code(s): 142162587 ICD Code: D70.9 - NEUTROPENIA, UNSPECIFIED; R50.81 - FEVER PRESENTING WITH CONDITIONS CLASSIFIED ELSEWHERE Status: Acute (2) AML (acute myeloblastic leukemia) SNOMED Code(s): 53626728 ICD Code: C92.00 - ACUTE MYELOBLASTIC LEUKEMIA, NOT HAVING ACHIEVED REMISSION Status: Acute Qualifiers: Leukemia Active/Remission status: without remission Qualified Code(s): C92.00 - Acute myeloblastic leukemia, not having achieved remission (3) Tobacco abuse disorder SNOMED Code(s): 343031500 ICD Code: Z72.0 - TOBACCO USE Status: Chronic - Patient Summary/Data Hospital Course: Saurav presented to the emergency room with fever, weakness and nausea. Work-up in the emergency room revealed neutropenia but no obvious source of infection. Cultures were obtained and he was started on broad-spectrum antibiotics. He was admitted to the hospital for further management. He did remain neutropenic throughout most of his hospital stay but fortunately did show steady improvement. His strength and appetite progressed nicely through the course of the hospital stay. He had a couple of episodes of diarrhea but no significant diarrhea. He did not develop localizing symptoms to suggest a source for infection and his cultures have all been negative. I suspect that he had irritation or inflammation somewhere in the gastrointestinal tract that allowed for temporary infection. He has been afebrile for more than 24 hours. Symptomatically he is feeling better. We did transition him to levofloxacin yesterday to cover mostly gastrointestinal sources but also some coverage for pulmonary source though he does not have significant pulmonary symptoms. He will continue this for 4 more days after hospital discharge. We have held his oral chemotherapy because of the acute infection and this will remain on hold until Monday after he has completed his treatment for the infection. He has follow-up scheduled with the infusion center next week. He is going to be staying with his sister for a while as he continues his recovery. - Patient Instructions Diet: Regular Diet as Tolerated Activity: As Tolerated Showering/Bathing: May Shower Notify Provider of: Fever, Increased Pain, Nausea and/or Vomiting Other/Special Instructions: 1. You were in the hospital for management of a neutropenic fever. We did not determine a causative bacteria for the infection but I suspect this likely came from an area of inflammation in your gastrointestinal tract. Your condition has been improving with antibiotic therapy. I do recommend additional antibiotic therapy after hospital discharge. Please take levofloxacin 500 mg once daily around 1 PM for 4 doses. Your first dose outside of the hospital will be due on . 2. Continue your other home medications as previously prescribed. 3. Follow up with the infusion center next week - Discharge Plan *PRESCRIPTION DRUG MONITORING PROGRAM REVIEWED*: Not Applicable *COPY OF PRESCRIPTION DRUG MONITORING REPORT IN PATIENT JUNG: Not Applicable Prescriptions/Med Rec: Levofloxacin 500 mg PO Q24H #4 tablet Home Medications: Home Meds Albuterol [Ventolin HFA] 2 puff INH Q4HR PRN 01/01/13 [History] Lisinopril 20 mg PO DAILY 01/01/13 [History] Multivitamin [Multi-Vitamin Daily] 1 each PO DAILY 01/01/13 [History] Acyclovir 200 mg PO DAILY 04/20/19 [History] Escitalopram Oxalate 5 mg PO DAILY 04/20/19 [History] Fluticasone/Vilanterol [Breo Ellipta 100-25 MCG Inhalation Kit] 1 inh INH DAILY 04/20/19 [History] Metoclopramide HCl 5 mg PO ASDIRECTED PRN 04/20/19 [History] Prochlorperazine [Compazine] 10 mg PO ASDIRECTED PRN 04/20/19 [History] Sulfamethoxazole/Trimethoprim [Sulfamethoxazole-Tmp Ss Tablet] 1 each PO ASDIRECTED 04/20/19 [History] Tamsulosin HCl 0.4 mg PO DAILY 04/20/19 [History] Venetoclax [Venclexta] 200 mg PO BID 04/20/19 [History] ondansetron HCL [Ondansetron HCl] 8 mg PO Q8H PRN 04/20/19 [History] traMADol HCl [Tramadol HCl] 50 mg PO ASDIRECTED PRN 04/20/19 [History] Levofloxacin 500 mg PO Q24H #4 tablet 04/24/19 [Rx] Oxygen Therapy Mode: Room Air Patient Handouts: Fever, Adult Referrals: Caitlin Hudson PA-C [Ordering Only Provider] - 04/30/19 9:30 am () - Discharge Summary/Plan Comment DC Time >30 min.: No - Patient Data Vitals - Most Recent: Last Vital Signs Temp 37.1 C 04/24/19 07:39 Pulse 78 04/24/19 07:39 Resp 19 04/24/19 07:39 BP 112/57 L 04/24/19 08:09 Pulse Ox 93 L 04/24/19 07:39 Weight - Most Recent: 60.963 kg I&O - Last 24 hours: Intake & Output 04/23/19 04/24/19 04/24/19 22:59 06:59 14:59 Intake Total 300 400 Output Total 150 225 Balance 150 175 Lab Results - Last 24 hrs: Laboratory Results - last 24 hr 04/24/19 04/24/19 Range/Units 04:15 04:15 WBC 21.2 H (4.5-11.0) K/uL RBC 2.95 L (4.30-5.90) M/uL Hgb 8.5 L (12.0-15.0) g/dL Hct 29.1 L (40.0-54.0) % MCV 99 H (80-98) fL MCH 29 (27-31) pg MCHC 29 L (32-36) % Plt Count 490 H (150-400) K/uL Add Manual Diff Yes Neutrophils % (Manual) 2 L (36-66) % Lymphocytes % (Manual) 92 H (24-44) % Monocytes % (Manual) 6 (2-6) % Anisocytosis Marked H Target Cells Moderate H Sodium 143 (140-148) mmol/L Potassium 3.6 (3.6-5.2) mmol/L Chloride 107 (100-108) mmol/L Carbon Dioxide 27 (21-32) mmol/L Anion Gap 9.0 (5.0-14.0) mmol/L BUN 6 L (7-18) mg/dL Creatinine 0.7 L (0.8-1.3) mg/dL Est Cr Clr Drug Dosing 87.09 mL/min Estimated GFR (MDRD) > 60 (>60) Glucose 93 (74-106) mg/dL Calcium 8.1 L (8.5-10.1) mg/dL EDWARD Results - Last 24 hrs: Microbiology 04/21/19 00:35 Aerobic Blood Culture - Preliminary Blood - Venous - Iv Start NO GROWTH AFTER 3 DAYS Anaerobic Blood Culture - Preliminary NO GROWTH AFTER 3 DAYS 04/21/19 00:30 Aerobic Blood Culture - Preliminary Blood - Arm, Right NO GROWTH AFTER 3 DAYS Anaerobic Blood Culture - Preliminary NO GROWTH AFTER 3 DAYS Med Orders - Current: Current Medications Acyclovir (Zovirax) 200 mg PO DAILY [facility] Last Admin: 04/24/19 08:10 Dose: 200 mg Albuterol (Ventolin Hfa) 0 gm INH Q4H PRN PRN Reason: Wheezing Enoxaparin Sodium (Lovenox) 40 mg SUBCUT DAILY [facility] Last Admin: 04/24/19 08:08 Dose: 40 mg Escitalopram Oxalate (Lexapro) 5 mg PO DAILY [facility] Last Admin: 04/24/19 08:08 Dose: 5 mg Fentanyl (Sublimaze) 50 mcg IVPUSH Q6H PRN PRN Reason: Pain (severe 7-10) Ibuprofen (Motrin) 600 mg PO Q6H PRN PRN Reason: Pain Last Admin: 04/21/19 01:49 Dose: 600 mg Lisinopril (Prinivil) 20 mg PO DAILY [facility] Last Admin: 04/24/19 08:09 Dose: 20 mg Melatonin (Melatonin) 9 mg PO BEDTIME PRN PRN Reason: Insomnia Last Admin: 04/23/19 21:20 Dose: 9 mg Metoclopramide HCl (Reglan) 5 - 10 mg PO Q6H PRN PRN Reason: Nausea Last Admin: 04/22/19 19:54 Dose: 10 mg Multivitamins/Minerals (Thera M Plus) 1 tab PO DAILY [facility] Last Admin: 04/24/19 08:09 Dose: 1 tab Nicotine (Habitrol) 21 mg TRDERM BEDTIME [facility] Last Admin: 04/23/19 21:16 Dose: 21 mg Ondansetron HCl (Zofran Odt) 8 mg PO Q8H PRN PRN Reason: NAUSEA Last Admin: 04/24/19 04:37 Dose: 8 mg Prochlorperazine Maleate (Compazine) 10 mg PO Q6H PRN PRN Reason: Nausea Last Admin: 04/21/19 18:20 Dose: 10 mg Fluticasone/Salmeterol (Fluticasone-Salmeterol 113-14 Mcg Powder Inh) 1 puff INH BIDRT [facility] Last Admin: 04/24/19 07:21 Dose: 1 puff Sodium Chloride (Saline Flush) 10 ml FLUSH ASDIRECTED PRN PRN Reason: Keep Vein Open Tamsulosin HCl (Flomax) 0.4 mg PO DAILY [facility] Last Admin: 04/24/19 08:07 Dose: 0.4 mg Tramadol HCl (Ultram) 50 mg PO Q6H PRN PRN Reason: Pain Last Admin: 04/24/19 08:02 Dose: 50 mg Discontinued Medications Lactated Ringer's (Ringers, Lactated) 1,000 mls @ 999 mls/hr IV BOLUS ONE Stop: 04/21/19 01:17 Last Admin: 04/21/19 00:51 Dose: 999 mls/hr Piperacillin Sod/Tazobactam (Sod 4.5 gm/ Sodium Chloride) 100 mls @ 100 mls/hr IV ONETIME ONE Stop: 04/21/19 01:17 Last Admin: 04/21/19 00:52 Dose: 100 mls/hr Piperacillin Sod/Tazobactam (Sod 3.375 gm/ Sodium Chloride) 50 mls @ 100 mls/ hr IV Q6H [facility] Last Admin: 04/21/19 05:21 Dose: 100 mls/hr Sodium Chloride (Normal Saline) 1,000 mls @ 25 mls/hr IV ASDIRECTED [facility] Last Admin: 04/22/19 09:50 Dose: 125 mls/hr Vancomycin HCl 1 gm/ Sodium (Chloride) 250 mls @ 150 mls/hr IV Q24H [facility] Last Admin: 04/21/19 02:06 Dose: 150 mls/hr Piperacillin/Tazobactam/ (Dextrose 3.375 gm/ Premix) 50 mls @ 100 mls/hr IV Q6H [facility] Last Admin: 04/23/19 12:34 Dose: Not Given Vancomycin HCl 1 gm/ Sodium (Chloride) 250 mls @ 167 mls/hr IV Q12H [facility] Last Admin: 04/23/19 01:34 Dose: 167 mls/hr Levofloxacin/Dextrose 500 mg/ (Premix) 100 mls @ 100 mls/hr IV ONETIME ONE Stop: 04/23/19 13:59 Last Admin: 04/23/19 13:27 Dose: 100 mls/hr Nicotine (Habitrol) 21 mg TRDERM DAILY [facility] Last Admin: 04/22/19 22:55 Dose: 21 mg Non-Formulary Medication (Venetoclax [Venclexta]) 200 mg PO BID [facility] Last Admin: 04/22/19 12:53 Dose: Not Given Potassium Chloride (Klor-Con M20) 40 meq PO ONETIME ONE Stop: 04/22/19 09:01 Last Admin: 04/22/19 09:28 Dose: 40 meq Potassium Chloride (Klor-Con M20) 40 meq PO ONETIME ONE Stop: 04/23/19 09:01 Last Admin: 04/23/19 10:51 Dose: 40 meq Tramadol HCl (Ultram) 50 mg PO ASDIRECTED PRN PRN Reason: Pain
[2019-04-24] MEDS ORDERED: Levofloxacin 500 MG Tab PO ONE (12:00)
== END 2019-04-24 13:45 | disposition home or self-care (01) | DRG 809 ==
LOC: JP.ED 21:01 → JP.MS 04-21 00:47
PROVIDERS: ADMIT Hospitalist; ATTEND Internal Medicine
DX: D70.9 Neutropenia, unspecified (principal); C92.00 Acute myeloblastic leukemia, not having achieved remission; C95.90 Leukemia, unspecified not having achieved remission; H54.7 Unspecified visual loss; R50.81 Fever presenting with conditions classified elsewhere; R91.1 Solitary pulmonary nodule; N40.0 Benign prostatic hyperplasia without lower urinary tract symptoms; M19.90 Unspecified osteoarthritis, unspecified site; J44.9 Chronic obstructive pulmonary disease, unspecified; I10 Essential (primary) hypertension; F32.9 Major depressive disorder, single episode, unspecified; F17.200 Nicotine dependence, unspecified, uncomplicated; Z79.899 Other long term (current) drug therapy; Z90.49 Acquired absence of other specified parts of digestive tract
CPT/HCPCS: 36415; 71046; 80048; 80053; 81001; 83605; 84484; 85025; 87040; 87804; 87804-59; 94640; 99284; 99284-25; A9270-GY; J1650; J1956; J2543; J3370; J7030; J7050; J7120; Q0164

== ENCOUNTER 2019-05-01 13:26 | Emergency (ER) | payer MEDICARE ==
[2019-05-01] MEDS ORDERED: Sodium Chloride 0.9% 1,000 ML IV SCH ×3 (13:45→16:45)
[2019-05-01] MEDS ORDERED: Ondansetron 4 MG/2 ML SDV IVPUSH ONE (13:45)
[2019-05-01] MEDS ORDERED: SUMAtriptan 6 MG/0.5 ML SDV SUBCUT ONE (13:51)
--- NOTE | 2019-05-01 13:57 | EDM.PDOC ---
ED HPI GENERAL MEDICAL PROBLEM - General Chief Complaint: General Stated Complaint: TEMP NAUSA Time Seen by Provider: 05/01/19 13:57 Source of Information: Reports: Patient History Limitations: Reports: No Limitations - History of Present Illness INITIAL COMMENTS - FREE TEXT/NARRATIVE: pt arrived with a fever that started during the nite. He was just hospitalized with a fever and finished the levoquin 3 days ago. He has a known history of leukemia and had his last round of chemo 3 weeks ago. He has been nauseated but he has been dry heaving. He had 3 loose stools this am. He has no abdomanal pain. He has a low o2 sat and a cough. Onset: Other ( temp started in the nite. ) Duration: Hour(s): Location: Reports: Chest, Generalized, Other (pt has alot of body aches. ) Associated Symptoms: Reports: Cough, Diaphoresis, Fever/Chills, Loss of Appetite , Nausea/Vomiting, Shortness of Breath Generalized Pain Score (Numeric/FACES): 3 - Related Data Allergies Allergy/AdvReac Type Severity Reaction Status Date / Time No Known Allergies Allergy Verified 04/20/19 21:38 Home Meds: Home Meds Albuterol [Ventolin HFA] 2 puff INH Q4HR PRN 01/01/13 [History] Lisinopril 20 mg PO DAILY 01/01/13 [History] Multivitamin [Multi-Vitamin Daily] 1 each PO DAILY 01/01/13 [History] Acyclovir 200 mg PO DAILY 04/20/19 [History] Escitalopram Oxalate 5 mg PO DAILY 04/20/19 [History] Fluticasone/Vilanterol [Breo Ellipta 100-25 MCG Inhalation Kit] 1 inh INH DAILY 04/20/19 [History] Metoclopramide HCl 5 mg PO ASDIRECTED PRN 04/20/19 [History] Prochlorperazine [Compazine] 10 mg PO ASDIRECTED PRN 04/20/19 [History] Sulfamethoxazole/Trimethoprim [Sulfamethoxazole-Tmp Ss Tablet] 1 each PO ASDIRECTED 04/20/19 [History] Tamsulosin HCl 0.4 mg PO DAILY 04/20/19 [History] Venetoclax [Venclexta] 200 mg PO BID 04/20/19 [History] ondansetron HCL [Ondansetron HCl] 8 mg PO Q8H PRN 04/20/19 [History] traMADol HCl [Tramadol HCl] 50 mg PO ASDIRECTED PRN 04/20/19 [History] Past Medical History HEENT History: Reports: Impaired Vision, Other (See Below) Other HEENT History: wears glasses Cardiovascular History: Reports: Hypertension Respiratory History: Reports: Asthma, COPD Genitourinary History: Reports: BPH Musculoskeletal History: Reports: Arthritis Psychiatric History: Reports: Depression Oncologic (Cancer) History: Reports: Leukemia - Infectious Disease History Infectious Disease History: Reports: Chicken Pox Other Infectious Disease History: unknown - Past Surgical History GI Surgical History: Reports: Appendectomy Social & Family History - Family History Family Medical History: Noncontributory - Tobacco Use Smoking Status *Q: Current Every Day Smoker Years of Tobacco use: 50 Packs/Tins Daily: 0.5 - Caffeine Use Caffeine Use: Reports: Coffee - Recreational Drug Use Recreational Drug Use: No ED ROS GENERAL - Review of Systems Review Of Systems: See Below Constitutional: Reports: Fever, Chills, Malaise, Weakness, Diaphoresis HEENT: Reports: No Symptoms Respiratory: Reports: Shortness of Breath, Cough Cardiovascular: Reports: No Symptoms Endocrine: Reports: No Symptoms GI/Abdominal: Reports: No Symptoms : Reports: No Symptoms Musculoskeletal: Reports: Muscle Pain, Muscle Stiffness Neurological: Reports: No Symptoms Psychiatric: Reports: No Symptoms ED EXAM, GENERAL - Physical Exam Exam: See Below Free Text/Narrative:: pt arrived with a history of a temp which started last nite. He is chilling Pt has a known history of leukemia and he did receive his last chemo 3 weeks ago. Exam Limited By: No Limitations General Appearance: Alert, Anxious, Mild Distress, Other (pt did have low o2 sats. with 2 liters is o2 is up. ) Ears: Normal TMs Nose: Normal Inspection Throat/Mouth: Normal Inspection Head: Atraumatic Neck: Normal Inspection Respiratory/Chest: Decreased Breath Sounds Cardiovascular: Regular Rate, Rhythm GI/Abdominal: Soft, Non-Tender (Male) Exam: Deferred Rectal (Males) Exam: Deferred Back Exam: Normal Inspection Extremities: Normal Inspection Neurological: Alert, Oriented, Normal Cognition Psychiatric: Anxious Course - Vital Signs Last Recorded V/S: Last Vital Signs Temp 38.1 C 05/01/19 13:43 Pulse 98 05/01/19 18:45 Resp 16 05/01/19 13:55 BP 90/52 L 05/01/19 18:45 Pulse Ox 92 L 05/01/19 18:45 - Orders/Labs/Meds Labs: Laboratory Tests 05/01/19 05/01/19 05/01/19 Range/Units 13:56 13:56 14:00 WBC 203.2 H* (4.5-11.0) K/uL RBC 3.30 L (4.30-5.90) M/uL Hgb 9.5 L (12.0-15.0) g/dL Hct 31.2 L (40.0-54.0) % MCV 95 (80-98) fL MCH 29 (27-31) pg MCHC 30 L (32-36) % Plt Count 108 L (150-400) K/uL Add Manual Diff Yes Neutrophils % (Manual) 2 L (36-66) % Lymphocytes % (Manual) 72 H (24-44) % Monocytes % (Manual) 10 H (2-6) % Blast Cells % 16 % Nucleated RBCs 2 D-Dimer, Quantitative (0.0-400.0) ng/mL Sodium 140 (140-148) mmol/L Potassium 4.2 (3.6-5.2) mmol/L Chloride 101 (100-108) mmol/L Carbon Dioxide 24 (21-32) mmol/L Anion Gap 15.2 H (5.0-14.0) mmol/L BUN 11 D (7-18) mg/dL Creatinine 1.3 D (0.8-1.3) mg/dL Est Cr Clr Drug Dosing 45.36 mL/min Estimated GFR (MDRD) 55 L (>60) Glucose 78 (74-106) mg/dL Lactic Acid 4.8 H (0.4-2.0) mmol/L Calcium 8.7 (8.5-10.1) mg/dL Total Bilirubin 0.7 (0.2-1.0) mg/dL AST 125 H D (15-37) U/L ALT 35 (12-78) U/L Alkaline Phosphatase 107 (46-116) U/L Total Protein 7.1 (6.4-8.2) g/dL Albumin 3.4 (3.4-5.0) g/dL Globulin 3.7 H (2.3-3.5) g/dL Albumin/Globulin Ratio 0.9 L (1.2-2.2) Urine Color (YELLOW) Urine Appearance (CLEAR) Urine pH (5.0-8.0) Ur Specific [place] (1.008-1.030) Urine Protein (NEGATIVE) mg/dL Urine Glucose (UA) (NEGATIVE) mg/dL Urine Ketones (NEGATIVE) mg/dL Urine Occult Blood (NEGATIVE) Urine Nitrite (NEGATIVE) Urine Bilirubin (NEGATIVE) Urine Urobilinogen (0.2-1.0) EU/dL Ur Leukocyte Esterase (NEGATIVE) Urine RBC (0-5) Urine WBC (0-5) Ur Epithelial Cells Amorphous Sediment Urine Bacteria Urine Mucus 05/01/19 05/01/19 05/01/19 Range/Units 14:00 16:52 17:48 WBC (4.5-11.0) K/uL RBC (4.30-5.90) M/uL Hgb (12.0-15.0) g/dL Hct (40.0-54.0) % MCV (80-98) fL MCH (27-31) pg MCHC (32-36) % Plt Count (150-400) K/uL Add Manual Diff Neutrophils % (Manual) (36-66) % Lymphocytes % (Manual) (24-44) % Monocytes % (Manual) (2-6) % Blast Cells % % Nucleated RBCs D-Dimer, Quantitative 3190 H (0.0-400.0) ng/mL Sodium (140-148) mmol/L Potassium (3.6-5.2) mmol/L Chloride (100-108) mmol/L Carbon Dioxide (21-32) mmol/L Anion Gap (5.0-14.0) mmol/L BUN (7-18) mg/dL Creatinine (0.8-1.3) mg/dL Est Cr Clr Drug Dosing mL/min Estimated GFR (MDRD) (>60) Glucose (74-106) mg/dL Lactic Acid 3.5 H (0.4-2.0) mmol/L Calcium (8.5-10.1) mg/dL Total Bilirubin (0.2-1.0) mg/dL AST (15-37) U/L ALT (12-78) U/L Alkaline Phosphatase (46-116) U/L Total Protein (6.4-8.2) g/dL Albumin (3.4-5.0) g/dL Globulin (2.3-3.5) g/dL Albumin/Globulin Ratio (1.2-2.2) Urine Color Yellow (YELLOW) Urine Appearance Slightly cloudy A (CLEAR) Urine pH 5.5 (5.0-8.0) Ur Specific [place] 1.010 (1.008-1.030) Urine Protein 30 H (NEGATIVE) mg/dL Urine Glucose (UA) Negative (NEGATIVE) mg/dL Urine Ketones Negative (NEGATIVE) mg/dL Urine Occult Blood Negative (NEGATIVE) Urine Nitrite Negative (NEGATIVE) Urine Bilirubin Negative (NEGATIVE) Urine Urobilinogen 0.2 (0.2-1.0) EU/dL Ur Leukocyte Esterase Negative (NEGATIVE) Urine RBC 0-5 (0-5) Urine WBC 0-5 (0-5) Ur Epithelial Cells Few Amorphous Sediment Not seen Urine Bacteria Moderate Urine Mucus Not seen Meds: Medications Discontinued Medications Generic Name Dose Route Start Last Admin Trade Name Freq PRN Reason Stop Dose Admin Sodium Chloride 1,000 mls @ 999 mls/hr 05/01/19 13:45 05/01/19 14:27 Normal Saline IV 999 mls/hr ASDIRECTED ANTHONY Administration Sodium Chloride 1,000 mls @ 999 mls/hr 05/01/19 14:45 05/01/19 15:21 Normal Saline IV 999 mls/hr ASDIRECTED ANTHONY Administration Piperacillin/Tazobactam/ 50 mls @ 100 mls/hr 05/01/19 14:50 05/01/19 14:49 Dextrose 3.375 gm/ Premix IV 05/01/19 15:19 100 mls/hr ONETIME ONE Administration Sodium Chloride 100 mls @ 4 mls/sec 05/01/19 15:00 05/01/19 15:13 Normal Saline IV 05/01/19 15:01 4 mls/sec ASDIRECTED ANTHONY Administration Sodium Chloride 1,000 mls @ 500 mls/hr 05/01/19 16:45 05/01/19 16:52 Normal Saline IV 500 mls/hr ASDIRECTED ANTHONY Administration Iopamidol 100 ml 05/01/19 15:00 05/01/19 15:13 Isovue-370 (76%) IV 05/01/19 15:01 100 ml . DIRECTED ANTHONY Administration Ondansetron HCl 4 mg 05/01/19 13:45 05/01/19 14:26 Zofran IVPUSH 05/01/19 13:46 4 mg ONETIME ONE Administration Sodium Chloride 10 ml 05/01/19 15:00 05/01/19 15:13 Saline Flush FLUSH 05/01/19 15:01 10 ml ONETIME ANTHONY Administration Sumatriptan Succinate 6 mg 05/01/19 13:51 Imitrex SUBCUT 05/01/19 13:52 ONETIME ONE - Re-Assessments/Exams Free Text/Narrative Re-Assessment/Exam: 05/01/19 17:58 Linda from oncology came and talked to the pt and he does not want to go to [facility] and have rigorous treatment. He wishes to go to hospice. [facility] and [facility] was contacted and he will be admitterd to hospice tomorrow. Pt has low o2 sats and he will have o2 delivered to him here and he will go home on the o2 at 3 liters. Departure - Departure Time of Disposition: 19:10 Disposition: Home, Self-Care 01 Condition: Fair Clinical Impression: Leukemia in relapse, COPD (chronic obstructive pulmonary disease), Low O2 saturation - Discharge Information Instructions: Chronic Obstructive Pulmonary Disease Exacerbation, [id number] Referrals: Phil Klein MD [Primary Care Provider] - Forms: ED Department Discharge Care Plan Goals: pt will be admitted to hospice tomorrow, O2 was sent home with the pt at 2-3 liters. Oter meds will be continued the same. Sepsis Event Note - Evaluation Sepsis Screening Result: Possible Severe Sepsis Risk - Focused Exam Date Exam was Performed: 05/03/19 Time Exam was Performed: 19:03
--- NOTE | 2019-05-01 14:34 | CR ---
CHEST: Portable to 08/14/2019 at 2:23 PM CLINICAL HISTORY:SOB COMPARISON:04/20/2019 FINDINGS: Heart size is normal pulmonary vascularity is mildly cephalized. There are atherosclerotic changes in the aorta. There is mild prominence of interstitial markings. The lungs are hyperaerated. Impression: COPD Mild vascular cephalization and some mild interstitial edema may represent superimposed pulmonary venous hypertension or CHF.
[2019-05-01] MEDS ORDERED: Piperacillin/Tazobactam 3.375 GM in Sodium Chloride 0.9% 50 ML IV ONE (14:37)
[2019-05-01] MEDS ORDERED: Piperacillin/Tazobactam/Dext 3.375 GM in Premix Bag 1 BAG IV ONE (14:50)
[2019-05-01] MEDS ORDERED: Sodium Chloride 0.9% 10 ML Syringe FLUSH SCH (15:00)
[2019-05-01] MEDS ORDERED: Iopamidol 755 Mg/ML 100 ML Bottle IV SCH (15:00)
[2019-05-01] MEDS ORDERED: Sodium Chloride 0.9% 100 ML IV SCH (15:00)
--- NOTE | 2019-05-01 15:54 | CT ---
Ang Chest CLINICAL HISTORY: Leukopenia, elevated d-dimer, postchemotherapy TECHNIQUE: Thin section axial contiguous tomographic sections were taken through the chest after bolus IV iodinated contrast administration. Coronal and sagittal images were reconstructed. Auto dosage reduction and iterative reconstruction techniques employed. FINDINGS: Patient has changes of COPD with emphysematous change scattered bullae and interstitial prominence. There are scattered tiny nodular foci in the subpleural regions. There is a 6 mm nonsolid type nodule in the superior segment of the left lower lobe. There is some bronchial thickening. No pulmonary mass or infiltrate is seen. Aorta is free of aneurysm or dissection. There are no filling defects in the pulmonary arteries. IMPRESSION: No evidence of pulmonary embolus Moderate changes of COPD Scattered tiny 2 to 4 mm nodules bilaterally are likely benign. Largest is a nonsolid type nodule measuring 6 mm.
== END 2019-05-01 19:00 | disposition home or self-care (01) ==
LOC: JP.ED 13:26
DX: C95.92 Leukemia, unspecified, in relapse (principal); R09.02 Hypoxemia; J44.9 Chronic obstructive pulmonary disease, unspecified; I10 Essential (primary) hypertension; N40.0 Benign prostatic hyperplasia without lower urinary tract symptoms; F32.9 Major depressive disorder, single episode, unspecified; F17.210 Nicotine dependence, cigarettes, uncomplicated; Z79.51 Long term (current) use of inhaled steroids; Z79.899 Other long term (current) drug therapy
CPT/HCPCS: 36415; 71045; 71275; 80053; 81001; 83605; 85025; 85379; 87040; 87804; 96361; 96365; 96375; 99284; J2405; J2543; J7030; J7050; Q9967